=== PATIENT | male | born 2000 | race Caucasian/White ===

== ENCOUNTER 2023-01-18 19:38 | Emergency (ER) | payer SELFPAY ==
[~2023-01-18] VITALS: Ht 182.9 cm; Wt 136.0 kg
[2023-01-18 19:48] VITALS: BP 116/52
[2023-01-18] MEDS ORDERED: BACTRIM DS1 TAB PO (20:11)
[2023-01-18] MEDS ORDERED: OMNI-PAC300 MG PO (20:11)
[2023-01-18 20:32] VITALS: BP 116/52
== END 2023-01-18 20:32 | disposition home or self-care (01) | DRG 603 ==
LOC: ED 19:38
DX: L03.211 Cellulitis of face (principal); Z86.14 Personal history of Methicillin resistant Staphylococcus aureus infection